=== PATIENT | female | born 1975 | race Caucasian/White ===

== ENCOUNTER 2022-09-06 13:09 | Emergency (ER) | payer OTHER, SELFPAY ==
[2022-09-06 13:13] VITALS: BP 147/92; PULSE 87; RESP 18
--- NOTE | 2022-09-06 13:39 | ED.GENADUL_ITS ---
Discharge Plan Disposition Patient Disposition: Against Medical Advice Condition: Serious Discharge Details Clinical Impression: Headache Primary Care Provider: None,None ED Provider: Noé Rios Home Meds and New Rx's Prescriptions: Continued ibuprofen 200 mg Tablet 400 mg PO PRN PRN Discharge Instructions Additional Instructions: your blood work did not show concerning findings, you chose to not proceed with a cat scan of your head follow up with your primary care provider within 1 week if you feel more ill, have severe worsening pain or fevers return to the emerge ncy department Medical Decision Making 47 yo female with hx of migraines, had a dvt/pe in 2019 per patient after having an ankle fracture and is no longer on anticoagulation and had workup for hypercoaguable states per pt that was negative, who comes in with pain in her head similar to her prior migraines starting at 0600 and feeling like she's in a fog. She denies fevers, chills, chest pain, neck stiffness, dyspnea. She took ibuprofen this morning with no significant change. She states the pain slowly worsened and is not the worst of her life. She arrives caox4 with normal gait, no focal motor or sensation deficits, CN II-XII intact, no meningismus. suspect migraine given her history, will treat with compazine and toradol and reassess. Will also check cbc, cmp, and ct head given she states her brain fog is not normal for her to evaluate for possible hemorrhage though this seems less likely labs unremarkable, she doesn't want to proceed with the CT, feels better after medications. She has decision making capacity and is clinically sober. She understands risks of leaving without proceeding with ct and possible further workups including cta or LP but she declines to stay for monitoring, observation and further testing, she understands risks of leaving including potential for and permanent disability and is willing to accept these risks. She is leaving against medical advise. She understands she can return at any time and she will f/u with pcp madelyn. Differential Diagnosis Differential Diagnosis: migraine, complex migraine, hemorrhage Lab Data Lab results reviewed: Yes I reviewed the patient's lab results. HPI General Mode of arrival: ambulatory . Date/Time Provider Initiated Documentation: 09/06/22 13:29 . Limitations to Documentation: no limitations . Information obtained by: patient . History of Present Illness 47 year old F presents to the emergency department with the chief complaint of migraine, described as moderate, Patient started experiencing this hour(s) (8) and it has been constant. No relieving factors improve symptom(s), No exacerbating factors reported . Patient notes denies chest pain and fever/chills. Patient did receive the following treatments prior to arrival, none Related Data Home Medications Medication Instructions Recorded Confirmed ibuprofen 200 mg tablet 400 mg PO PRN PRN 09/06/22 09/06/22 Allergies Allergy/AdvReac Type Severity Reaction Status Date / Time Penicillins Allergy Intermediate Skin Rash Unverified 09/06/22 13:19 General Stated Complaint: Headache KERRIE: 3 Review of Systems All systems reviewed & are unremarkable except as noted in HPI and below Constitutional Constitutional: Denies chills, Denies fever(s) and Denies weakness Cardiovascular Cardiovascular: Denies chest pain and Denies dyspnea Respiratory Respiratory: Denies cough and Denies dyspnea Gastrointestinal Gastrointestinal: Denies abdominal pain, Denies nausea and Denies vomiting Integumentary/Breasts Skin/Breast: Denies rash Neurologic Neurologic: Denies weakness PFSH All Active Problems (Updated 09/06/22 @ 14:29 by Noé Rios MD) Headache (Acute) Medical History (Updated 09/06/22 @ 14:29 by Noé Rios MD) Pulmonary embolism Social History Smoking/Tobacco Use Status: Never Smoking risk assessment performed?: Yes Alcohol Intake: never Drug use: Occasionally Substance use type: marijuana Exam Const General: no acute distress Orientation: alert HENMT Head: normal to inspection Ears: external ears normal General nose exam: external nose normal Mouth: moist mucous membranes Eyes General: appearance normal, both eyes and all related structures Neck Neck: normal visual inspection Resp Effort & Inspection: normal respiratory effort and able to speak in complete sentences Cardio Rate: regular rate Skin General skin exam: no rashes or lesions noted Neuro General: patient alert and patient oriented x3 Extrem General: normal to inspection Psych Mental Status: mental status grossly normal Course Vital Signs Vital signs: Vital Signs Pulse 87 09/06/22 13:13 Respiratory Rate 18 09/06/22 13:13 Blood Pressure 147/92 H 09/06/22 13:13 Temperature Source Oral 09/06/22 13:13 Pulse 87 09/06/22 13:13 Respiratory Rate 18 09/06/22 13:13 Respiratory Effort Normal, Non-Labored 09/06/22 13:23 Blood Pressure 147/92 H 09/06/22 13:13 Blood Pressure Position Sitting 09/06/22 13:13 Oxygen Delivery Method Room Air 09/06/22 13:13 Oxygen Flow Rate 0 09/06/22 13:13
[2022-09-06 13:55] LABS: Abs Immature Grans 0.02 10^3/uL (0.0-0.06); Absolute Basophil Count 0.02 10^3/uL (0.0-0.2); Absolute Eosinophil Count 0.16 10^3/uL (0.0-0.7); Absolute Lymphocyte Count 2.03 10^3/uL (1.2-3.4); Absolute Monocyte Count 0.44 10^3/uL (0.1-0.8); Basophils % 0.3; Eosinophils % 2.4; HCT 39.3 % (36.0-46.0); HGB 12.9 g/dL (11.2-15.7); Immature Grans % 0.3; MCHC 32.8 % (32.0-36.0); MCV 82 fL (80-95); MPV 9.8 fL (8.0-11.0); Monocytes % 6.5; Neutrophils % 60.5; Platelet Count 270 10^3/uL (130-400); RBC 4.77 10^6/uL (3.93-5.22); RDW 14.6 % (11.7-14.6); RDW-SD 44.3 fL; WBC 6.77 10^3/uL (4.4-10.8)
[2022-09-06] MEDS: Normal Saline 1,000 ML 1000 ML IV (14:02)
[2022-09-06] MEDS: Prochlorperazine 10 MG/2 ML VIAL IVP (14:02)
[2022-09-06] MEDS: Ketorolac 15 MG/ML VIAL IVP (14:02)
[2022-09-06 14:07] LABS: Bilirubin Negative (Negative); Blood Moderate (Negative); Clarity Clear (Clear); Glucose Negative (Negative); Ketones Negative (Negative); Leukocyte Esterase Negative (Negative); Nitrite Negative (Negative); Specific Gravity <= 1.005 (1.005-1.025); Urobilinogen 0.2 mg/dL (Up to 0.2); pH 5.5 (5-8)
[2022-09-06 14:18] LABS: Bacteria Negative HPF (Negative); Crystals Negative HPF (Negative); Epithelial Cells Few HPF (Negative); Mucus Negative (Negative)
[2022-09-06 14:19] LABS: C & S Indicated? No
[2022-09-06 14:21] LABS: ALT 33 U/L (14-59); AST 23 U/L (15-37); Albumin 3.7 g/dL (3.4-5.0); Alkaline Phosphatase 73 U/L (46-116); BUN 9 mg/dL (7-18); Bilirubin, Total 0.3 mg/dL (0.2-1.0); CREATININE 0.9 mg/dL (0.55-1.02); Chloride 103 mmol/L (98-107); Estimated GFR 79.85 (mL/min/1.73m2); Glucose 119 mg/dL (74-106); Potassium 3.6 mmol/L (3.5-5.1); Sodium 138 mmol/L (136-145); TSH (W/Ref FT4) 1.92 uIU/mL (0.36-3.74)
[2022-09-06 14:39] VITALS: BP 136/88; PULSE 82; RESP 18; O2SAT 97
== END 2022-09-06 14:45 | disposition left against medical advice (07) ==
PROVIDERS: Emergency Provider Emergency Medicine
DX: R51.9 Headache, unspecified; Z86.718 Personal history of other venous thrombosis and embolism; Z53.29 Procedure and treatment not carried out because of patient's decision for other reasons; Z88.0 Allergy status to penicillin
CPT/HCPCS: 36415; 80053; 81025; 96361; 96374; 96375; 99284; 81003; 81015; 83735; 84443; 85025; J0780; J1885